=== PATIENT | male | born 2000 | race Hispanic/Latino ===

== ENCOUNTER 2024-05-20 18:54 | Inpatient (IN) | payer OTHER ==
[~2024-05-20] VITALS: Ht 172.7 cm; Wt 53.0 kg
[2024-05-20] MEDS ORDERED: ACET1TAB55 PO (19:10)
[2024-05-20 20:20] LABS: BASO # 0.1 10^3/uL (0.0-0.2); BASO % 0.6 % (0.0-1.0); EOS # 0.3 10^3/uL (0.0-0.5); EOS % 2.2 % (0.0-3.0); HEMATOCRIT 39.2 % (42.0-52.0); HEMOGLOBIN 13.1 g/dl (13.5-17.5); LYMPH # 1.8 10^3/uL (1.5-5.0); LYMPH % 12.1 % (24.0-44.0); MEAN CORPUSCULAR HEMOGLOBIN 27.5 pg (27.0-33.0); MEAN CORPUSCULAR HGB CONC 33.4 g/dl (32.0-36.5); MEAN CORPUSCULAR VOLUME 82.2 fl (80.0-96.0); MONO # 1.9 10^3/uL (0.0-0.8); MONO % 12.8 % (2.0-8.0); NEUTROPHILS # 10.5 10^3/uL (1.5-8.5); NEUTROPHILS % 71.8 % (36.0-66.0); PLATELET COUNT, AUTOMATED 517 10^3/uL (150-450); RED BLOOD COUNT 4.77 10^6/uL (4.30-6.10); WHITE BLOOD COUNT 14.7 10^3/uL (4.0-10.0)
[2024-05-20 20:33] LABS: INR 1.16; PARTIAL THROMBOPLASTIN TIME 37.4 SECONDS (24.8-34.2); PROTHROMBIN TIME 14.4 SECONDS (12.5-14.5)
[2024-05-20 20:50] LABS: BLOOD UREA NITROGEN 9 MG/DL (9-23); CALCIUM LEVEL 9.8 MG/DL (8.5-10.1); CARBON DIOXIDE LEVEL 30 MMOL/L (20-31); CHLORIDE LEVEL 98 MMOL/L (98-107); CREATININE FOR GFR 0.58 MG/DL (0.70-1.30); GLOMERULAR FILTRATION RATE > 60.0 (>60); GLUCOSE, FASTING 101 MG/DL (60-100); POTASSIUM SERUM 3.9 MMOL/L (3.5-5.1); SODIUM LEVEL 135 MMOL/L (136-145)
[2024-05-20] MEDS: NS 1,000 ML IV ONE (21:10)
[2024-05-20] MEDS: ACETAMINOPHEN *IV* 1,000 MG in IV 1 EA IV ONE (21:15)
[2024-05-20] MEDS ORDERED: ISOVUE-370 76% 100ML VIAL As Ordered ONE (21:16)
[2024-05-20 21:28] LABS: LIPASE 26 U/L (12-53)
[2024-05-20 21:30] LABS: ALBUMIN 3.4 G/DL (3.2-5.2); ALKALINE PHOSPHATASE 99 U/L (46-116); ALT/SGPT 12 U/L (7.0-40); AST/SGOT 8 U/L (<34); BILIRUBIN,DIRECT 0.2 MG/DL (<0.4); TOTAL PROTEIN 7.4 G/DL (5.7-8.2)
[2024-05-20 21:44] LABS: BILIRUBIN,TOTAL 0.5 MG/DL (0.3-1.2)
[2024-05-20 22:45] LABS: ERYTHROCYTE SEDIMENTATION RATE 109 mm/hr (0-15)
[2024-05-20] MEDS: PIPERACILLIN/TAZOBACTAM SOD 3.375 GM in D5W MINI-BAG PLUS 50 ML IV ONE (23:37)
[2024-05-21] MEDS: FIDAXOMICIN 200 MG TAB (DIFICID) PO ONE (01:44)
[2024-05-21] MEDS: NS 1,000 ML IV SCH ×2 (03:23→22:02)
[2024-05-21] MEDS ORDERED: HOME MED LIST COMPLETE! XX SCH (05:05)
[2024-05-21 05:51] LABS: HEMATOCRIT 32.4 % (42.0-52.0); HEMOGLOBIN 10.8 g/dl (13.5-17.5); MEAN CORPUSCULAR HEMOGLOBIN 27.3 pg (27.0-33.0); MEAN CORPUSCULAR HGB CONC 33.3 g/dl (32.0-36.5); PLATELET COUNT, AUTOMATED 465 10^3/uL (150-450); RED BLOOD COUNT 3.95 10^6/uL (4.30-6.10); WHITE BLOOD COUNT 13.2 10^3/uL (4.0-10.0)
[2024-05-21 06:10] LABS: ALBUMIN 2.5 G/DL (3.2-5.2); ALKALINE PHOSPHATASE 78 U/L (46-116); ALT/SGPT 10 U/L (7.0-40); AST/SGOT < 8 U/L (<34); BILIRUBIN,TOTAL 0.5 MG/DL (0.3-1.2); BLOOD UREA NITROGEN 7 MG/DL (9-23); CALCIUM LEVEL 8.7 MG/DL (8.5-10.1); CARBON DIOXIDE LEVEL 28 MMOL/L (20-31); CHLORIDE LEVEL 103 MMOL/L (98-107); CREATININE FOR GFR 0.63 MG/DL (0.70-1.30); GLOMERULAR FILTRATION RATE > 60.0 (>60); GLUCOSE, FASTING 130 MG/DL (60-100); MAGNESIUM LEVEL 1.8 MG/DL (1.8-2.4); POTASSIUM SERUM 3.6 MMOL/L (3.5-5.1); SODIUM LEVEL 136 MMOL/L (136-145); TOTAL PROTEIN 5.7 G/DL (5.7-8.2)
[2024-05-21] MEDS: ACETAMINOPHEN 325 MG TAB PO PRN (10:21)
[2024-05-21] MEDS: FIDAXOMICIN 200 MG TAB (DIFICID) PO SCH (11:12)
[2024-05-21 17:05] VITALS: BP 128/78; TEMP 102.7; O2SAT 97
[2024-05-21] MEDS: NS 1,000 ML IV ONE ×2 (18:24→21:53)
[2024-05-21] MEDS: metroNIDAZOLE 500 MG in IV 1 EA IV SCH (19:33)
[2024-05-21 20:58] VITALS: BP 119/75; TEMP 101.3; O2SAT 96
[2024-05-21] MEDS: ACETAMINOPHEN *IV* 1,000 MG in IV 1 EA IV ONE (21:31)
[2024-05-21] MEDS: ONDANSETRON 4MG 2ML VIAL IV PRN (21:32)
[2024-05-21 21:38] VITALS: TEMP 101.7
[2024-05-21] MEDS: cefTRIAXone SOD 2 GM in D5W MINI-BAG PLUS 50 ML IV SCH (22:02)
[2024-05-21] MEDS: MORPHINE 2 MG/ML 1ML VIAL IV ONE (22:05)
[2024-05-21 23:21] VITALS: TEMP 101.7
[2024-05-22 00:23] VITALS: TEMP 101.7
[2024-05-22] MEDS: KETOROLAC 30 MG/ML 1ML VIAL IV ONE (00:35)
[2024-05-22 01:04] LABS: HEMATOCRIT 29.4 % (42.0-52.0); HEMOGLOBIN 9.8 g/dl (13.5-17.5); MEAN CORPUSCULAR HEMOGLOBIN 27.4 pg (27.0-33.0); MEAN CORPUSCULAR HGB CONC 33.3 g/dl (32.0-36.5); MEAN CORPUSCULAR VOLUME 82.1 fl (80.0-96.0); PLATELET COUNT, AUTOMATED 439 10^3/uL (150-450); RED BLOOD COUNT 3.58 10^6/uL (4.30-6.10); WHITE BLOOD COUNT 13.3 10^3/uL (4.0-10.0)
[2024-05-22 01:46] LABS: ALBUMIN 2.3 G/DL (3.2-5.2); ALKALINE PHOSPHATASE 69 U/L (46-116); ALT/SGPT < 9 U/L (7.0-40); AST/SGOT < 8 U/L (<34); BILIRUBIN,DIRECT 0.2 MG/DL (<0.4); BILIRUBIN,TOTAL 0.4 MG/DL (0.3-1.2); BLOOD UREA NITROGEN < 5 MG/DL (9-23); CARBON DIOXIDE LEVEL 26 MMOL/L (20-31); CHLORIDE LEVEL 105 MMOL/L (98-107); CREATININE FOR GFR 0.57 MG/DL (0.70-1.30); GLOMERULAR FILTRATION RATE > 60.0 (>60); GLUCOSE, FASTING 119 MG/DL (60-100); MAGNESIUM LEVEL 1.5 MG/DL (1.8-2.4); POTASSIUM SERUM 3.5 MMOL/L (3.5-5.1); SODIUM LEVEL 136 MMOL/L (136-145); TOTAL PROTEIN 5.4 G/DL (5.7-8.2)
[2024-05-22 02:03] VITALS: BP 107/62; TEMP 100.7; O2SAT 97
[2024-05-22 02:07] LABS: ATYPICAL LYMPH 1 % (0-5); EOSINOPHILS 2 % (0-3); LYMPHOCYTES 5 % (16-44); MONOCYTES 16 % (0-5); NEUTROPHILS 63 % (28-66); PLATELET ESTIMATE NORMAL (NORMAL)
[2024-05-22 02:08] LABS: HYPOCHROMASIA 1+; POLYCHROMASIA 1+
[2024-05-22] MEDS: methylPREDNISolone 125MG 2ML VIAL IV ONE (02:10)
[2024-05-22] MEDS: MAG SULF 1GM/100ML (MAG RUN) 1 GM in IV 1 EA IV SCH (04:03)
[2024-05-22 04:04] VITALS: BP 116/72; TEMP 99.3; O2SAT 97
[2024-05-22 06:29] LABS: BASO # 0.1 10^3/uL (0.0-0.2); BASO % 0.4 % (0.0-1.0); EOS # 0.1 10^3/uL (0.0-0.5); EOS % 0.4 % (0.0-3.0); HEMATOCRIT 31.6 % (42.0-52.0); HEMOGLOBIN 10.4 g/dl (13.5-17.5); LYMPH # 0.4 10^3/uL (1.5-5.0); LYMPH % 2.9 % (24.0-44.0); MEAN CORPUSCULAR HEMOGLOBIN 27.2 pg (27.0-33.0); MEAN CORPUSCULAR HGB CONC 32.9 g/dl (32.0-36.5); MEAN CORPUSCULAR VOLUME 82.7 fl (80.0-96.0); MONO # 0.6 10^3/uL (0.0-0.8); MONO % 4.7 % (2.0-8.0); NEUTROPHILS # 12.2 10^3/uL (1.5-8.5); NEUTROPHILS % 90.7 % (36.0-66.0); PLATELET COUNT, AUTOMATED 457 10^3/uL (150-450); RED BLOOD COUNT 3.82 10^6/uL (4.30-6.10); WHITE BLOOD COUNT 13.5 10^3/uL (4.0-10.0)
[2024-05-22 06:53] LABS: BLOOD UREA NITROGEN < 5 MG/DL (9-23); CALCIUM LEVEL 8.6 MG/DL (8.5-10.1); CARBON DIOXIDE LEVEL 26 MMOL/L (20-31); CHLORIDE LEVEL 103 MMOL/L (98-107); CREATININE FOR GFR 0.58 MG/DL (0.70-1.30); GLOMERULAR FILTRATION RATE > 60.0 (>60); GLUCOSE, FASTING 122 MG/DL (60-100); POTASSIUM SERUM 3.6 MMOL/L (3.5-5.1); SODIUM LEVEL 138 MMOL/L (136-145)
[2024-05-22] MEDS ORDERED: KETOROLAC 30 MG/ML 1ML VIAL IV PRN (09:25)
[2024-05-22] MEDS: FAMOTIDINE 20 MG TAB PO SCH (10:20)
[2024-05-22 12:00] VITALS: BP 127/86; TEMP 97.7; O2SAT 98
[2024-05-22] MEDS: BUDESONIDE EC 3MG CAP (ENTOCORT EC) PO SCH (16:02)
[2024-05-22 19:52] VITALS: BP 121/70; TEMP 98.6; O2SAT 97
[2024-05-23 03:36] VITALS: BP 124/62; TEMP 99.2; O2SAT 97
[2024-05-23 05:16] LABS: BASO % 0.3 % (0.0-1.0); EOS % 0.1 % (0.0-3.0); HEMATOCRIT 28.2 % (42.0-52.0); HEMOGLOBIN 9.3 g/dl (13.5-17.5); LYMPH # 0.9 10^3/uL (1.5-5.0); LYMPH % 8.2 % (24.0-44.0); MEAN CORPUSCULAR HEMOGLOBIN 26.6 pg (27.0-33.0); MEAN CORPUSCULAR VOLUME 80.6 fl (80.0-96.0); MONO # 2.3 10^3/uL (0.0-0.8); MONO % 21.9 % (2.0-8.0); NEUTROPHILS % 68.1 % (36.0-66.0); PLATELET COUNT, AUTOMATED 483 10^3/uL (150-450); WHITE BLOOD COUNT 10.3 10^3/uL (4.0-10.0)
[2024-05-23 05:44] LABS: BLOOD UREA NITROGEN < 5 MG/DL (9-23); CALCIUM LEVEL 8.5 MG/DL (8.5-10.1); CARBON DIOXIDE LEVEL 27 MMOL/L (20-31); CHLORIDE LEVEL 105 MMOL/L (98-107); CREATININE FOR GFR 0.57 MG/DL (0.70-1.30); GLOMERULAR FILTRATION RATE > 60.0 (>60); GLUCOSE, FASTING 116 MG/DL (60-100); MAGNESIUM LEVEL 1.9 MG/DL (1.8-2.4); POTASSIUM SERUM 3.5 MMOL/L (3.5-5.1); SODIUM LEVEL 139 MMOL/L (136-145)
[2024-05-23 12:00] VITALS: BP 121/80; TEMP 98.6; O2SAT 97
[2024-05-23] MEDS: metroNIDAZOLE (FLAGYL) 500MG TABLET PO SCH (13:06)
[2024-05-23 20:00] VITALS: BP 122/79; TEMP 101.8; O2SAT 97
[2024-05-23 21:48] VITALS: TEMP 100.7; O2SAT 97
[2024-05-23 22:34] VITALS: TEMP 100.2; O2SAT 98
[2024-05-24 00:18] VITALS: BP 122/79; TEMP 99.6; O2SAT 97
[2024-05-24 04:18] VITALS: BP 121/79; TEMP 98.1; O2SAT 98
[2024-05-24 06:24] LABS: BASO # 0.1 10^3/uL (0.0-0.2); BASO % 0.4 % (0.0-1.0); EOS # 0.5 10^3/uL (0.0-0.5); EOS % 3.6 % (0.0-3.0); HEMATOCRIT 28.3 % (42.0-52.0); HEMOGLOBIN 9.4 g/dl (13.5-17.5); LYMPH # 1.2 10^3/uL (1.5-5.0); LYMPH % 9.7 % (24.0-44.0); MEAN CORPUSCULAR HEMOGLOBIN 26.6 pg (27.0-33.0); MEAN CORPUSCULAR HGB CONC 33.2 g/dl (32.0-36.5); MEAN CORPUSCULAR VOLUME 80.2 fl (80.0-96.0); MONO # 2.2 10^3/uL (0.0-0.8); MONO % 17.5 % (2.0-8.0); NEUTROPHILS # 8.6 10^3/uL (1.5-8.5); NEUTROPHILS % 67.8 % (36.0-66.0); PLATELET COUNT, AUTOMATED 486 10^3/uL (150-450); RED BLOOD COUNT 3.53 10^6/uL (4.30-6.10); WHITE BLOOD COUNT 12.6 10^3/uL (4.0-10.0)
[2024-05-24 06:55] LABS: BLOOD UREA NITROGEN < 5 MG/DL (9-23); CALCIUM LEVEL 8.2 MG/DL (8.5-10.1); CARBON DIOXIDE LEVEL 28 MMOL/L (20-31); CHLORIDE LEVEL 105 MMOL/L (98-107); CREATININE FOR GFR 0.53 MG/DL (0.70-1.30); GLOMERULAR FILTRATION RATE > 60.0 (>60); GLUCOSE, FASTING 92 MG/DL (60-100); POTASSIUM SERUM 3.3 MMOL/L (3.5-5.1); SODIUM LEVEL 136 MMOL/L (136-145)
[2024-05-24] MEDS ORDERED: CIPR-249 PO (10:36)
[2024-05-24] MEDS ORDERED: FAMO40TA3 PO (10:36)
[2024-05-24] MEDS ORDERED: PROBCAP14 PO (10:36)
[2024-05-24] MEDS ORDERED: PRED10TA2 PO (10:36)
[2024-05-24] MEDS ORDERED: METR-265 PO (10:36)
[2024-05-24] MEDS ORDERED: DIFI200T PO (10:36)
[2024-05-24] MEDS: POTASSIUM CHLORIDE 10MEQ SR TABLET PO ONE (10:53)
== END 2024-05-24 11:06 | DRG 720 ==
LOC: M ED 18:54 → M ED INP 05-21 02:05 → M MSPAV 05-21 17:02
PROVIDERS: ADMIT Internal Medicine; ATTEND Internal Medicine Nephrology
DX: A41.9 Sepsis, unspecified organism (principal); A04.72 Enterocolitis due to Clostridium difficile, not specified as recurrent; E44.0 Moderate protein-calorie malnutrition; K56.7 Ileus, unspecified; Z79.899 Other long term (current) drug therapy